=== PATIENT | female | born 1965 | race Asian ===

== ENCOUNTER 2019-11-11 09:50 | Day surgery (SDC) | payer OTHER ==
[2019-11-04 10:34] VITALS: BMI 23.3
[2019-11-11 10:39] VITALS: TEMP 98
[2019-11-11 13:14] VITALS: BP 110/65; PULSE 68
--- NOTE | 2019-11-12 16:08 | PATH ---
Surgical Pathology Report Patient Name: JACQUELIN ALLEN [facility]. Rec. #: [id number] /Age/Gender: 1965 (Age: 54) / F Account: [id number] Location: [facility] Taken: 11/11/2019 Received: 11/11/2019 Reported: 11/12/2019 Physicians: Nikky Pereira M.D. Specimen(s) Received RECTOSYMOID JUNCTION POLYP X 8 Clinical History Screening Postoperative diagnosis: Colon polyps, diverticulosis, hemorrhoids Final Diagnosis RECTOSIGMOID JUNCTION POLYP X 8, POLYPECTOMY: FRAGMENTS OF SESSILE SERRATED POLYP AND HYPERPLASTIC POLYP. SEPARATE FRAGMENTS OF COLONIC MUCOSA WITH REACTIVE LYMPHOID AGGREGATES. Electronically Signed Jose Lang M.D. Gross Description Received in formalin labeled "biopsy polyp rectosigmoid junction x8," are 8 alvarado soft tissue fragments ranging from 0.1-0.5 cm in greatest dimension. The specimen is submitted in toto in one cassette. 11/11/2019 [facility]11/11/2019
== END 2019-11-11 13:16 | disposition home or self-care (01) ==
LOC: FASU-ENDO 09:50
PROVIDERS: ATTEND Internal Medicine Gastroenterology
PROC: 0DBN8ZX Excision of Sigmoid Colon, Via Natural or Artificial Opening Endoscopic, Diagnostic (ICD-10-PCS; principal; 2019-11-11 11:45)
DX: Z12.11 Encounter for screening for malignant neoplasm of colon (principal); D12.7 Benign neoplasm of rectosigmoid junction; K57.30 Diverticulosis of large intestine without perforation or abscess without bleeding; K64.1 Second degree hemorrhoids
CPT/HCPCS: 84703